=== PATIENT | female | born 1975 | race Caucasian/White ===

== ENCOUNTER 2018-10-18 13:25 | Emergency (ER) | payer OTHER ==
[~2018-10-18] VITALS: Ht 170.2 cm; Wt 64.4 kg
[~2018-10-18 13:25] MED LIST: PRENATAL1 TAB
== END 2018-10-18 19:46 | disposition home or self-care (01) ==
LOC: ER 13:25
DX: N83.291 Other ovarian cyst, right side (principal); R10.11 Right upper quadrant pain